=== PATIENT | male | born 1970 | race Asian ===

== ENCOUNTER 2018-04-09 23:39 | Emergency (ER) | payer OTHER ==
[~2018-04-09] VITALS: Ht 162.6 cm; Wt 63.5 kg
--- NOTE | 2018-04-09 23:43 | NUR ---
PT TAKEN TO BED 9
[2018-04-09 23:45] VITALS: BP 149/87
--- NOTE | 2018-04-09 23:50 | NUR ---
PT C/O HEADACHE X2 DAYS, DENIES N/V/D, BLURRY VISION. DENIES N/V/D; SKIN IS PINK/WARM/DRY; AAOX4 WITH EVEN AND STEADY GAIT; LUNGS CLEAR BL; HR EVEN AND REGULAR; PT DENIES ANY FEVER, CP, SOB, OR COUGH AT THIS TIME; PATIENT STATES PAIN OF 5/10 AT THIS TIME; VSS; PATIENT POSITIONED FOR COMFORT; HOB ELEVATED; BEDRAILS UP X2; BED DOWN. ER MD MADE AWARE OF PT STATUS.
--- NOTE | 2018-04-10 00:13 | NUR ---
Dr. Manzano evaluating patient at bedside.
[2018-04-10] MEDS ORDERED: KETOROLAC 60 MG/2 ML VIAL IM ONE (00:20)
--- NOTE | 2018-04-10 01:02 | NUR ---
PT TAKEN TO CT
[2018-04-10 01:44] VITALS: BP 134/80
--- NOTE | 2018-04-10 01:44 | NUR ---
Patient discharged with v/s stable. Written and verbal after care instructions given and explained. Patient alert, oriented and verbalized understanding of instructions. Ambulatory with steady gait. All questions addressed prior to discharge. ID band removed. Patient advised to follow up with PMD. Rx of TRAMADOL AND MOTRIN given. Patient educated on indication of medication including possible reaction and side effects. Opportunity to ask questions provided and answered.
== END 2018-04-10 01:44 | disposition home or self-care (01) ==
LOC: MED 23:39
DX: R51 Headache (principal)
CPT/HCPCS: 70450; 96372; 99284; J1885

== ENCOUNTER 2018-04-10 05:50 | Emergency (ER) | payer OTHER ==
[~2018-04-10] VITALS: Ht 160 cm; Wt 68.0 kg
--- NOTE | 2018-04-10 05:50 | NUR ---
PT TAKEN TO BED 10. DR. JJ AND RT AT BEDSIDE
--- NOTE | 2018-04-10 05:55 | NUR ---
PATIENT PRESENTS TO ED WITH FAMILY, UNRESPONSIVE, GCS OF 3, DR. JJ INTUBATED PT RIGHT AWAY ON ARRIVAL AT 0555. STATES THAT PT WAS SEEN AWAKE AT 0230 AM, PT WAS NORMAL AT THAT TIME. PT FELT PT JERKING AT 0500 AM AND DECIDED TO DRIVE PT TO ER VS CALLING 911. PT SEEN EARLIER FOR C/O HEADACHE FOR 2 DAYS, CT HEAD WAS DONE AND DISCHARGED HOME WITH PRESCRIPTION ON A STABLE CONDITION. LABS DONE, 2 IV PLACED BY STAFF, [address],PT CAME BACK FROM CT, PT ON THE MONITOR, DR. JJ IS CALLING [facility] AND [facility] FOR ADVANCE LEVEL OF CARE. DOMINGUEZ INTACT AND DRAINING, IVF IS RUNNING.
--- NOTE | 2018-04-10 05:55 | NUR ---
CALLED TO ER STAT , PATIENT UNRESPONSIVE, STARTED TO AMBU PATIENT WITH 100% O2 AND SETUP INTUBATION TRAY, DR. JJ INTUBATED EET-7.5 @23cm@TEETH. BS ARE EQUAL AND BILATERAL, ETCO2 POSITIVE FOR GAS EXCHANGE, HR-88, SAO2-100% RR-18BPM. AFTER INTUBATION, PATIENT AMBU BAG W/FIO2-100% TRANSPORTED TO CT SCAN AND RETURNED BACK TO ER. PLACED ON VENTILATOR SETTING AC-12, VT-500, FIO2-100%, PEEP+5. SPUTUM SAMPLE OBTAINED BY DONELL BENTON
--- NOTE | 2018-04-10 06:04 | NUR ---
Travis montgomery in [facility] - 04/10/18 at 0604 by TOM PT TAKENT TO BED CT
--- NOTE | 2018-04-10 06:04 | NUR ---
PT TAKEN TO CT
[2018-04-10] MEDS ORDERED: NACL 0.9% 1,000 ML IV ONE (06:05)
[2018-04-10 06:11] VITALS: BP 176/114
--- NOTE | 2018-04-10 06:15 | NUR ---
PT RETURN FROM CT
[2018-04-10 06:21] LABS: HEMATOCRIT 49.1 % (36-52); HEMOGLOBIN 15.7 g/dL (12.0-18.0); MEAN CORPUSCULAR HEMOGLOBIN 30 pg (27-31); MEAN CORPUSCULAR HGB CONC 32 g/dL (33-37); MEAN CORPUSCULAR VOLUME 94.2 fL (80-94); PLATELET COUNT (AUTO) 187 K/uL (140-450); RED BLOOD CELL COUNT(AUTO) 5.21 MIL/uL (4.20-6.10); RED CELL DISTRIBUTION WIDTH 13.4 % (11.6-13.7); WHITE BLOOD COUNT (AUTO) 20.3 K/uL (4.8-10.8)
[2018-04-10 06:29] LABS: BARBITURATE, URINE NEG. ng/ml (NEG <=200); BENZODIAZEPINE, URINE NEG. ng/mL (NEG <=200); CANNABINOID, URINE NEG. ng/mL (NEG <=50); COCAINE, URINE NEG. ng/mL (NEG <=300); OPIATE, URINE NEG. ng/mL (NEG <=2000); PHENCYCLIDINE SCREEN,URINE NEG. ng/mL (NEG <=25)
[2018-04-10 06:34] VITALS: BP 132/92
[2018-04-10 06:40] LABS: EOSINOPHILS % (MANUAL) 7 % (0-4); MONOCYTES % (MANUAL) 10 % (5-12)
[2018-04-10 06:41] LABS: LYMPHOCYTES % (MANUAL) 51 % (20-46)
--- NOTE | 2018-04-10 06:43 | NUR ---
PT GOT ACCEPTED TO [facility], [facility] TIME 45 MINS, DR. BUTLER IS THE ACCEPTING DOCTOR.
[2018-04-10 06:46] LABS: ALBUMIN 3.1 g/dL (3.4-5.0); ANION GAP 15.9 (8-16); ASPARTATE AMINOTRANSFERASE 58 U/L (15-37); CARBON DIOXIDE 22.5 mmol/L (21-32); CHLORIDE 110 mmol/L (98-107); CREATININE 0.9 mg/dL (0.7-1.3); GFR ARICAN-AMERICAN 115 mL/min (>90); GLUCOSE 199 mg/dL (74-106); POTASSIUM 3.4 mmol/L (3.5-5.1); SODIUM SERUM 145 mmol/L (136-145); TOTAL BILIRUBIN 0.8 mg/dL (0.0-1.0); UREA NITROGEN, BLOOD 8 mg/dL (7-18)
--- NOTE | 2018-04-10 06:50 | NUR ---
Patient to be transferred to [facility] ([facility] . Is being transferred due to advanced level of care. Receiving facility has accepting physician and available space. ER physician has signed transfer form. Patient or responsible democrat has agreed to transfer and signed form. Patient belongings inventoried and will be sent with patient. Copy of nursing notes, lab reports, EKG, Physicians Orders and X-rays to be sent with patient. Report called to BENNETT Hwang at receiving facility. [facility] ambulance service has been called for transfer. ETA is 45 MINS.
[2018-04-10 06:55] LABS: ACETAMINOPHEN < 0.5 ug/ml (10-30); SALICYLATE < 2.8 mg/dL (2.8-20.0)
[2018-04-10] MEDS ORDERED: levETIRAcetam 100 MG/ML VIAL IV ONE (06:58)
--- NOTE | 2018-04-10 06:58 | NUR ---
[facility] TRANSPORT AT BEDSIDE
--- NOTE | 2018-04-10 07:00 | NUR ---
FAMILY AT THE BEDSIDE, PT OPENING EYES, UNABLE TO FOLLOW COMMANDS.
--- NOTE | 2018-04-10 07:05 | NUR ---
STEPHON AT THE BEDSIDE, REPORT GIVEN TO CATRINA. PT IS BEING TRANSEFERRED. BENNETT WING AT THE BEDSIDE. DR. JJ SPOKE WITH FAMILY.
[2018-04-10 07:07] VITALS: BP 130/89
--- NOTE | 2018-04-10 07:07 | NUR ---
PT LEFT WITH [facility], ALL REQUIRED PAPER WORK GIVEN TO CATRINA.
--- NOTE | 2018-04-10 07:22 | NUR ---
PATIENT CAME TO ER UNRESPONSIVE. INTUBATE IN THE ER AND DID CATH SCAN.PATIENT TRANSFER TO [facility]. VENT SETTING GIVEN TO STEPHON BY RN.
[2018-04-10] MEDS ORDERED: levETIRAcetam 1,000 MG in NACL 0.9% 100 ML IV SCH (09:00)
== END 2018-04-10 07:07 | disposition short-term general hospital (02) ==
LOC: MED 05:50
DX: I60.9 Nontraumatic subarachnoid hemorrhage, unspecified (principal)
CPT/HCPCS: 36415; 70450; 80053; 80305; 85025; 89220; 96361; 96374; 99285; G0480; G0482; J1953; 93005